=== PATIENT | male | born 1960 | race Caucasian/White ===

== ENCOUNTER 2018-08-14 17:58 | Outpatient (REF) | payer BC, SELFPAY ==
[2018-08-14 21:07] LABS: Abs Immature Grans 0.03 k/cumm (0.0-0.09); HCT 44.1 % (40.0-50.0); HGB 14.8 g/dL (13.5-17.5); Mean Corp. HGB Concentration 33.6 g/dL (32.0-36.0); Mean Corpuscular Hemoglobin 30.9 pg (27.0-33.0); Mean Corpuscular Volume 92.1 fL (80-95); Mean Platelet Volume 10.4 fL (8.0-11.0); Platelet Count 230 x1000/uL (130-400); RBC 4.79 m/cumm (4.50-6.00); RBC Distribution Width 12.9 % (11.8-14.1); White Blood Cell Count 6.99 k/cumm (4.4-10.8)
[2018-08-14 21:18] LABS: Iron 66 ug/dL (50-175); Total Iron Binding Capacity 385 ug/dL (250-450); Transferrin Sat 17 % (20-55)
[2018-08-14 21:33] LABS: Ferritin 101 ng/mL (8-388); TSH (W/Ref FT4) 3.95 uIU/mL (0.358-3.74)
[2018-08-14 22:19] LABS: FREE T4 1.07 ng/dL (0.76-1.46)
[2018-08-14 22:59] LABS: Absolute Lymphocyte Count 2.94 k/cumm (1.2-3.4); Absolute Monocyte Count 0.35 k/cumm (0.11-0.7); Atypical Lymphocytes % 7; Diff Comment Manual Differential; RBC Morphology Normal
== END 2018-08-14 18:18 ==
LOC: NCHCN 17:58
PROVIDERS: PCP Nurse Practitioner Family; Visit Provider Nurse Practitioner Family
DX: R53.83 Other fatigue (principal); E78.2 Mixed hyperlipidemia; I10 Essential (primary) hypertension; E74.39 Other disorders of intestinal carbohydrate absorption; K22.70 Barrett's esophagus without dysplasia; K21.9 Gastro-esophageal reflux disease without esophagitis
CPT/HCPCS: 82728; 83540; 83550; 84439; 84443; 85025

== ENCOUNTER 2020-06-09 19:24 | Outpatient (REF) | payer BC, SELFPAY ==
[2020-06-09 21:43] LABS: ALT 26 U/L (16-63); AST 19 U/L (15-37); Albumin 3.9 g/dL (3.4-5.0); Alkaline Phosphatase 81 U/L (46-116); Anion Gap 9.3 mmol/L (3-11); BUN 16 mg/dL (7-18); Bilirubin, Total 0.5 mg/dL (0.2-1.0); CO2 26.7 mmol/L (21.0-32.0); CREATININE 1.11 mg/dL (0.70-1.30); Calcium 9.1 mg/dL (8.5-10.1); Chloride 105 mmol/L (98-107); Glucose 95 mg/dL (74-106); Magnesium 1.6 mg/dL (1.8-2.4); Potassium 3.7 mmol/L (3.5-5.1); Sodium 141 mmol/L (136-145); TSH (W/Ref FT4) 2.86 uIU/mL (0.36-3.74); Total Protein 6.9 g/dL (6.4-8.2); Vitamin B12 210 pg/mL (193-986)
[2020-06-10 18:20] LABS: PSA, Screening 2.1 ng/mL (0.0-3.5)
[2020-06-11 09:49] LABS: HIV-1/2 Ag & Ab Screen Negative (Negative)
== END 2020-06-09 19:44 ==
LOC: NCHCN 19:24
PROVIDERS: PCP Nurse Practitioner Family; Visit Provider Nurse Practitioner Family
DX: I10 Essential (primary) hypertension (principal); E78.2 Mixed hyperlipidemia; E03.9 Hypothyroidism, unspecified; R53.83 Other fatigue; K21.9 Gastro-esophageal reflux disease without esophagitis; K22.70 Barrett's esophagus without dysplasia; Z12.5 Encounter for screening for malignant neoplasm of prostate; Z80.42 Family history of malignant neoplasm of prostate; Z11.4 Encounter for screening for human immunodeficiency virus [HIV]
CPT/HCPCS: 80053; 84153; 87389; 82607; 83735; 84443

== ENCOUNTER 2020-07-15 19:35 | Outpatient (REF) | payer BC, SELFPAY ==
[2020-07-15 21:14] LABS: Magnesium 1.9 mg/dL (1.8-2.4); Vitamin B12 451 pg/mL (193-986)
== END 2020-07-15 19:55 ==
LOC: NCHCN 19:35
PROVIDERS: PCP Nurse Practitioner Family; Visit Provider Nurse Practitioner Family
DX: E83.42 Hypomagnesemia (principal); R53.83 Other fatigue
CPT/HCPCS: 82607; 83735

== ENCOUNTER 2020-08-11 13:37 | Outpatient (REF) | payer BC, SELFPAY ==
[2020-08-15 14:37] LABS: Patient Race White; SARS-CoV-2 RNA Undetected (Undetected); SARS-CoV-2 Specimen Source Nasal
== END 2020-08-11 13:57 ==
LOC: NCHCN 13:37
PROVIDERS: PCP Nurse Practitioner Family; Visit Provider Nurse Practitioner Family
DX: Z20.828 Contact with and (suspected) exposure to other viral communicable diseases (principal)
CPT/HCPCS: U0003